=== PATIENT | female | born 1985 | race African-American/Black ===

== ENCOUNTER 2017-07-29 18:18 | Emergency (ER) | payer BC ==
[~2017-07-29] VITALS: Ht 154.9 cm; Wt 81.6 kg
[2017-07-29 18:40] VITALS: BP 121/68
[2017-07-29] MEDS ORDERED: DOXY100C2 PO (19:27)
--- NOTE | 2017-07-29 19:27 | PHYS DOC ---
Past Medical History Past Medical History: Other Additional Past Medical Histor: chronic migraines Past Surgical History: Tubal ligation Alcohol Use: Occasionally Drug Use: None Adult General Chief Complaint Chief Complaint: GENERALIZED BODY ACHES [facility] HPI Patient is a 32 year old female presents to the emergency department stating that she's been having frontal pressure for the last 2 days. She states that she started having generalized body aches and discomfort last night. She denies any fever, chills or any vomiting. She does state she's had some nausea. Patient states that she did have postnasal drainage last few days. She denies any cough at this time. Patient states she's been taking [id number] medications without relief. Review of Systems Review of Systems Constitutional: Denies fever or chills [] Eyes: Denies change in visual acuity, redness, or eye pain [] HENT: nasal congestion denies sore throat [] Respiratory: Denies cough or shortness of breath [] Cardiovascular: No additional information not addressed in HPI [] GI: Denies abdominal pain, nausea, vomiting, bloody stools or diarrhea [] : Denies dysuria or hematuria [] Musculoskeletal: Denies back pain or joint pain [] Integument: Denies rash or skin lesions [] Neurologic: Denies headache, focal weakness or sensory changes [] Endocrine: Denies polyuria or polydipsia [] Allergies Allergies Allergies Coded Allergies Type Severity Reaction Last Updated Verified Penicillins Allergy Unknown unknown 07/29/17 Yes Physical Exam Physical Exam Constitutional: Well developed, well nourished, no acute distress, non-toxic appearance. [] HENT: Normocephalic, atraumatic, bilateral external ears normal, oropharynx moist, no oral exudates, nose normal. Right tympanic membrane appears to be full bulging, left tympanic membrane appears to be normal. Patient with postnasal drip noted that is clear in color at this time. Throat appears to be red. No anterior cervical adenopathy noted. Eyes: PERRLA, EOMI, conjunctiva normal, no discharge. [] Neck: Normal range of motion, no tenderness, supple, no stridor. [] Cardiovascular:Heart rate regular rhythm, no murmur [] Lungs & Thorax: Bilateral breath sounds clear to auscultation [] Skin: Warm, dry, no erythema, no rash. [] Back: No tenderness Extremities: No tenderness, no cyanosis, no clubbing, ROM intact, no edema. [] Neurologic: Alert and oriented X 3, normal motor function, normal sensory function, no focal deficits noted. [] Psychologic: Affect normal, judgement normal, mood normal. [] Current Patient Data Vital Signs Vital Signs Date Time Temp Pulse Resp B/P (MAP) Pulse Ox O2 Delivery O2 Flow Rate FiO2 07/29/17 18:40 98.4 74 18 97 Room Air 98.4 EKG EKG [] Radiology/Procedures Radiology/Procedures [] Course & Med Decision Making Course & Med Decision Making Pertinent Labs and Imaging studies reviewed. (See chart for details) Patient will be placed on doxycycline. She does have a history of a tubal ligation therefore no as noted. Patient will be encouraged to use Sudafed [id number] to help with sinus pressure. She will also be encouraged to use Mucinex DM [id number]. Patient was encouraged to drink plenty of fluids. Ibuprofen for generalized body aches and discomfort. Patient will be discharged home in stable condition with signs and symptoms to return back to emergency department. Recommended following up with her primary care physician in next 5-7 days. All questions and concerns been answered at patient' s bedside. [] Dragon Disclaimer Dragon Disclaimer This electronic medical record was generated, in whole or in part, using a voice recognition dictation system. Departure Departure Impression: Primary Impression: Sinusitis Disposition: 01 HOME, SELF-CARE Condition: STABLE Referrals: NO PCP (PCP) Patient Instructions: Sinusitis, Gadt-[id number] Additional Instructions: Activity as tolerated. Medications as prescribed. Tylenol or ibuprofen for fever chills or generalized body aches and discomfort. Sudafed and Mucinex may be taken as instructed by crts [id number]. Drink plenty of fluids. Follow-up primary care physician next 5-7 days. Return back to emergency department sign symptoms of become worse. Scripts Doxycycline Hyclate (DOXYCYCLINE HYCLATE) 100 Mg Capsule 1 CAP PO BID, #20 CAP Prov: ERICK GARCIA [employer] OPERATOR 07/29/17 Problem Qualifiers Primary Impression: Sinusitis Sinusitis location: frontal Chronicity: unspecified Qualified Codes: J32.1 - Chronic frontal sinusitis ERICK GARCIA [employer] OPERATOR Jul 29, 2017 19:27
== END 2017-07-29 19:29 | disposition home or self-care (01) ==
LOC: ER 18:18
DX: J32.1 Chronic frontal sinusitis (principal); G43.909 Migraine, unspecified, not intractable, without status migrainosus; Z88.0 Allergy status to penicillin
CPT/HCPCS: 99283